=== PATIENT | male | born 1995 | race Two or more races ===

== ENCOUNTER → 2020-06-17 | Outpatient (CLI) | payer OTHER ==
--- NOTE | 2020-06-17 16:38 | CARD ---
MR#: [id number] Date of Study: 06/17/2020 Ordering Physician: KESHA BLACK, Referring Physician: KESHA BLACK, Tech: Arlen Salas [facility] APPROVED REPORT EXAM: Two-dimensional and M-mode echocardiogram with Doppler and color Doppler. Other Information Quality : Technically LimitedHR: 53bpm Rhythm : NSR INDICATION Chest Pain Echo Enhancing Agent Agent/Amount Used: Lumason mL RISK FACTORS Obesity 2D DIMENSIONS RVDd4.1 (2.9-3.5cm)Left Atrium(2D)3.8 (1.6-4.0cm) IVSd1.2 (0.7-1.1cm)Aortic Root(2D)3.2 (2.0-3.7cm) LVDd5.5 (3.9-5.9cm)LVOT Diameter2.3 (1.8-2.4cm) PWd1.2 (0.7-1.1cm)LVDs3.1 (2.5-4.0cm) FS (%) 43.2 %SV109.5 ml Aortic Valve AoV Peak Bonilla.120.6cm/sAoV VTI25.1cm AO Peak GR.5.8mmHgLVOT Peak Bonilla.101.4cm/s AO Mean GR.3mmHgAVA (VMAX)3.52cm2 Mitral Valve MV E Osiwjcze63.4cm/sMV DECEL [id number] MV A Metldmcd35.9cm/sE/A Ratio1.5 Pulmonary Valve PV Peak Mxtwviiz63.8cm/s LEFT VENTRICLE The left ventricle is normal size. There is borderline concentric left ventricular hypertrophy. The l eft ventricular systolic function is normal and the ejection fraction is within normal range. Estima nova ejection fraction 50-55% There is normal LV segmental wall motion. The left ventricular diastolic function and filling is normal for age. RIGHT VENTRICLE The right ventricle is normal size. There is normal right ventricular wall thickness. The right ventr icular systolic function is normal. ATRIA The left atrium size is normal. The right atrium size is normal. The interatrial septum is intact wit h no evidence for an atrial septal defect or patent foramen ovale as noted on 2-D or Doppler imaging. AORTIC VALVE The aortic valve is normal in structure and function. Doppler and Color Flow revealed no significant aortic regurgitation. There is no significant aortic valvular stenosis. There is no aortic valvular v egetation. MITRAL VALVE The mitral valve is normal in structure and function. There is no evidence of mitral valve prolapse. There is no mitral valve stenosis. Doppler and Color Flow revealed no mitral valve regurgitation note d. TRICUSPID VALVE The tricuspid valve is normal in structure and function. Doppler and Color Flow revealed no tricuspid valve regurgitation noted. There is no tricuspid valve stenosis. PULMONIC VALVE The pulmonary valve is normal in structure and function. Doppler and Color Flow revealed no pulmonic valvular regurgitation. GREAT VESSELS The aortic root is normal in size. The ascending aorta is normal in size. The pulmonary artery is nor mal. The IVC is normal in size and collapses >50% with inspiration. PERICARDIAL EFFUSION There is no evidence of significant pericardial effusion. Critical Notification Critical Value: No <Conclusion> The left ventricle is normal size. The left ventricular systolic function is normal and the ejection fraction is within normal range. Estimated ejection fraction 50-55% There is borderline concentric left ventricular hypertrophy. Doppler and Color Flow revealed no significant aortic regurgitation. There is no significant aortic valvular stenosis. Doppler and Color Flow revealed no mitral valve regurgitation noted. Doppler and Color Flow revealed no tricuspid valve regurgitation noted. Signed by : Alvarez Mendoza MD Electronically Approved : 06/17/2020 16:37:42
== END ==
LOC: ECHO 13:50
PROVIDERS: ATTEND Internal Medicine Cardiovascular Disease
DX: R07.9 Chest pain, unspecified (principal)
CPT/HCPCS: 93306

== ENCOUNTER → 2020-06-23 | Outpatient (CLI) | payer OTHER ==
--- NOTE | 2020-06-25 12:38 | SLEEP ---
DATE OF STUDY: 06/24/2020 SLEEP STUDY ATTENDING PHYSICIAN: Bairon Curtis MD REFERRING PHYSICIAN: Kesha Lopez MD The patient is a 25-year-old who weighs 360 pounds with a BMI of 49. The patient's [place] score is 15. The patient underwent split night study performed at [facility]. During the night study, the patient spent 465 minutes in bed and slept for 366 minutes with a sleep efficiency of 79%. Sleep latency was 7 minutes with a REM latency of 169 minutes. Sleep architecture showed increased stage 1 and stage 2 sleep, normal slow wave and reduced REM sleep. During the initial diagnostic portion of the study, the patient slept for 285 minutes. The patient had 15 obstructive apneas, 63 hypopneas, no mixed apneas and 5 central apneas. The patient's AHI was 18 per hour with a supine AHI index of 30 per hour and a REM AHI of 39 per hour. PLMs were seen at index of 3 per hour and none caused EEG arousals. EKG monitoring revealed an average heart rate of 69 beats per minute, no sustained arrhythmias observed. Nocturnal oximetry study revealed a mean oxygen saturation of 96% with the lowest of 89%. The patient met the criteria for CPAP initiation. It was started at 5 cm water and titrated up to 8 cm water. At the final pressure, the patient slept for 48 minutes. The patient had supine, but no REM sleep. The patient's AHI was reduced to 0 per hour and oxygen saturations remained above 91%. The patient used a medium-size full-face mask. IMPRESSION: 1. Moderate obstructive sleep apnea with worsening during supine and REM sleep. Total AHI 18 per hour with a supine AHI of 30 per hour and REM AHI of 39 per hour. 2. No clinically significant nocturnal hypoxia. 3. No clinically significant periodic limb movements. RECOMMENDATIONS: 1. CPAP at 8 cm water completely eliminated the patient's sleep apnea and should be used on a nightly basis. 2. Follow up in 4-6 weeks to assess compliance with CPAP and to document clinical improvement. 3. Weight loss is strongly advised. 4. Avoid PATIENT ATTENDANT depressants. 5. Cautioned regarding driving until symptoms of sleep apnea resolve with the use of CPAP. LISA GRANADOS MD DR: LOLA/micky JOB#: [id number] / [id number] KESHA Navarro MD, GALEN MD
== END ==
LOC: SLPLAB 19:08
PROVIDERS: ATTEND Internal Medicine Cardiovascular Disease
DX: G47.33 Obstructive sleep apnea (adult) (pediatric) (principal)
CPT/HCPCS: 95810